=== PATIENT | female | born 1965 | race Caucasian/White ===

== ENCOUNTER 2021-01-21 14:21 | Emergency (ER) | payer OTHER ==
[2021-01-21] MEDS ORDERED: Piperacillin/Tazobactam 4.5 GM in Sodium Chloride 0.9% 100 ML IV SCH (16:15)
[2021-01-21] MEDS ORDERED: Lactated Ringers 1,000 ML IV SCH (16:15)
[2021-01-21] MEDS ORDERED: Albuterol/Ipratropium 4 GM Inhalation Spray INH STA (16:16)
[2021-01-21] MEDS ORDERED: Ondansetron 4 MG/2 ML SDV IVPUSH ONE (16:19)
[2021-01-21] MEDS ORDERED: fentaNYL 100 MCG/2 ML SDV IVPUSH ONE (16:19)
--- NOTE | 2021-01-21 16:19 | EDM.PDOC ---
ED HPI GENERAL MEDICAL PROBLEM - General Chief Complaint: Respiratory Problem Stated Complaint: NAUSEA, SOB, ABDOMINAL PAIN Time Seen by Provider: 01/21/21 16:08 Source of Information: Reports: Patient, RN Notes Reviewed History Limitations: Reports: No Limitations - History of Present Illness INITIAL COMMENTS - FREE TEXT/NARRATIVE: 55-year-old female presents emergency department day complaint of abdominal pain, she states she has been feeling worse and more short of breath has progressed over the last 5 days. Now she is having extreme difficulty breathing with intense abdominal pain has nausea vomiting no diarrhea Social & Family History - Tobacco Use Tobacco Use Status *Q: Never Tobacco User ED ROS GENERAL - Review of Systems Review Of Systems: See Below Constitutional: Reports: Fever, Chills, Weakness, Fatigue HEENT: Reports: No Symptoms Respiratory: Reports: Shortness of Breath Cardiovascular: Reports: Dyspnea on Exertion GI/Abdominal: Reports: Abdominal Pain, Flatus, Nausea, Vomiting : Reports: No Symptoms ED EXAM, GENERAL - Physical Exam Exam: See Below Exam Limited By: No Limitations General Appearance: Alert, Mild Distress Respiratory/Chest: No Respiratory Distress, Lungs Clear, Normal Breath Sounds, No Accessory Muscle Use, Chest Non-Tender Cardiovascular: Regular Rate, Rhythm, No Murmur GI/Abdominal: Soft, Tender (Tenderness to palpation) ED RESPIRATORY PROCEDURES - Endotracheal Intubation Time of Intubation: 17:21 ET Intubation Indication: Respiratory Failure Preparation: Suction, Balloon Tested, BVM Set Up, Difficult Airway Equip Airway Assessment: Obese Pre-Oxygenation: Assisted with BVM, 100% FiO2 Placement: Orotracheal, Cuffed Cords Visualized: Yes, Grade 3 ETT Size In mm: 7.5 Number of Attempts: 2 Confirmed By: CO2 Indicator, Bilateral Breath Sounds Tube Secured By: By RN Endotracheal Intubation Comment: Data Entry Technician(s):Samuel Officer Indication: Respiratory failure Consent: None Pre-airway Assessment: History: Presented to the emergency department concern for sepsis developed a rapid deterioration while in the ED Oral Aperture: 2 fingers Thyromental Distance (sniffing position): 2 fingers Hyroid the thyroid distance: 2 fingers Mallampati Airway Class: Class III Other factors pertinent to difficult airway: Obese with short neck Pre-oxygenation: This was a code situation no preoxygenation immediately started chest compressions oral airway was placed with bag valve mask ventilation Sellick's maneuver was not performed. Bag-mask ventilation was moderate. Placement and Proof: Indirect laryngoscopy was performed with a glide scope GVL 4. During code process Eder was in place IVs in place elected to proceed to the advanced airway initial attempt with the glide scope number four 7.5 ET tube and the glide scope stylette could not turn the corner to place the ET tube between the vocal cords. Scope was then withdrawn code continue. On the next attempt bougie was passed down again unsuccessful to turn the corner to pass through the vocal cords ET tube with the glide scope stylette was tried again but this time just outside the vocal cords or superior to the vocal cords the stylette was the n slowly withdrawn and this allowed good position of the ET tube passed through the vocal cords the tube was passed to about 23 cm balloon inflated held in place by hand the end-tidal capnography was placed on the end of the ET tube revealing yellow color good breath sounds bilaterally with moisture in the tube. The tube was then secured by nursing staff. The code continued Tracheal placement of the tube was confirmed by auscultation and colorimetric change. The total number of attempts at laryngoscopy (direct and indirect) was 2. The tube was secured at 23 cm at the teeth/gums. . Complications: None apparent #1 Interpretation EKG Date: 01/21/21 Time: 16:20 Rhythm: NSR [place]: Normal P-Wave: Present QRS: Normal ST-T: Normal QT: Normal Comparison: NA - No Prior EKG Course - Vital Signs Last Recorded V/S: Last Vital Signs Temp 97.8 F 01/21/21 15:46 Pulse 95 01/21/21 15:46 Resp 18 01/21/21 15:46 BP 106/72 01/21/21 15:46 Pulse Ox 86 L 01/21/21 15:46 - Orders/Labs/Meds Orders: Active Orders 24 hr Category Date Time Status Blood Pressure Mgt: Sepsis [RC] Q15MX2 Care 01/21/21 16:15 Active EKG Documentation Completion [RC] ASDIRECTED Care 01/21/21 16:14 Active RT Post Treatment Assessment [RC] Click to Edit Care 01/21/21 16:17 Active COVID-19/FLU A+B/RSV [MOLEC] Urgent Lab 01/21/21 16:17 Ordered CULTURE BLOOD [BC] Urgent Lab 01/21/21 16:30 Received CULTURE BLOOD [BC] Urgent Lab 01/21/21 16:50 Received D-DIMER QUANTITATIVE [COAG] Urgent Lab 01/21/21 16:28 Ordered LACTATE SEPSIS W/ REFLEX [CHEM] Stat Lab 01/21/21 16:13 Ordered PROCALCITONIN [CHEM] Stat Lab 01/21/21 16:13 Ordered UA W/MICROSCOPIC [URIN] Stat Lab 01/21/21 16:13 Ordered Lactated Ringers [Ringers, Lactated] 1,000 ml Med 01/21/21 16:15 Active IV ASDIRECTED Piperacillin/Tazobactam [Zosyn] 4.5 gm Med 01/21/21 16:15 Active Sodium Chloride 0.9% [Normal Saline] 100 ml IV Q6H Blood Culture x2 Reflex Set [OM.PC] Urgent Oth 01/21/21 16:13 Ordered Severe Sepsis Onset Time [OM.PC] Stat Oth 01/21/21 16:13 Ordered EKG 12 Lead [EK] Stat Ther 01/21/21 16:13 Ordered Medication Orders Lactated Ringer's (Ringers, Lactated) 1,000 mls @ 999 mls/hr IV ASDIRECTED EFREN Piperacillin Sod/Tazobactam (Sod 4.5 gm/ Sodium Chloride) 100 mls @ 100 mls/hr IV Q6H [facility] Labs: Laboratory Tests 01/21/21 01/21/21 01/21/21 Range/Units 16:13 16:13 16:13 WBC 17.2 H (4.5-11.0) K/uL RBC 5.92 H (3.30-5.50) M/uL Hgb 14.8 (12.0-15.0) g/dL Hct 47.3 (36.0-48.0) % MCV 80 (80-98) fL MCH 25 L (27-31) pg MCHC 31 L (32-36) % Plt Count 656 H (150-400) K/uL Neut % (Auto) 72 H (36-66) % Lymph % (Auto) 21 L (24-44) % Leon % (Auto) 6 (2-6) % Eos % (Auto) 0 L (2-4) % Baso % (Auto) 0 (0-1) % Puncture Site Femoral ABG pH 7.108 L* (7.350-7.450) ABG pCO2 46.6 H (35.0-42.0) mmHg ABG pO2 34.1 L* (75.0-100.0) mmHg ABG HCO3 14.1 L (22.0-26.0) mmol/L ABG Total CO2 13.8 L (21.0-25.0) mmol/L ABG O2 Saturation 33.6 L (95.0-98.0) % ABG O2 Content 6.3 L (15.0-23.0) %vol ABG Base Excess -15.2 mm/L ABG Hemoglobin 13.4 (12.0-16.0) g/dL ABG Oxyhemoglobin 33.3 % ABG Carboxyhemoglobin < 0.5 (0.0-1.6) % ABG Methemoglobin 0.7 % Jaime Test TNP O2 Delivery Device Nasal cannula Sodium 136 L (140-148) mmol/L Potassium 6.1 H* (3.6-5.2) mmol/L Chloride 101 (100-108) mmol/L Carbon Dioxide 14 L (21-32) mmol/L Anion Gap 27.1 H (5.0-14.0) mmol/L BUN 16 (7-18) mg/dL Creatinine 0.8 (0.6-1.0) mg/dL Est Cr Clr Drug Dosing 70.66 mL/min Estimated GFR (MDRD) > 60 (>60) Glucose 191 H (74-106) mg/dL Calcium 9.4 (8.5-10.1) mg/dL Total Bilirubin 1.3 H (0.2-1.0) mg/dL AST 40 H (15-37) U/L ALT 24 (12-78) U/L Alkaline Phosphatase 111 (46-116) U/L Troponin I < 0.017 (0.000-0.056) ng/mL Total Protein 8.0 (6.4-8.2) g/dL Albumin 2.8 L (3.4-5.0) g/dL Globulin 5.2 H (2.3-3.5) g/dL Albumin/Globulin Ratio 0.5 L (1.2-2.2) Lipase 67 L (73-393) U/L Meds: Medications Generic Name Dose Route Start Last Admin Trade Name Freq PRN Reason Stop Dose Admin Lactated Ringer's 1,000 mls @ 999 mls/hr 01/21/21 16:15 Ringers, Lactated IV ASDIRECTED EFREN Piperacillin Sod/Tazobactam 100 mls @ 100 mls/hr 01/21/21 16:15 Sod 4.5 gm/ Sodium Chloride IV Q6H EFREN Discontinued Medications Generic Name Dose Route Start Last Admin Trade Name Freq PRN Reason Stop Dose Admin Albuterol/Ipratropium 1 gm 01/21/21 16:16 Albuterol/Ipratropium 4 Gm Inhalation [place] [facility] 01/21/21 16:17 NOW STA Fentanyl 50 mcg 01/21/21 16:19 Fentanyl 100 Mcg/2 Ml Sdv IVPUSH 01/21/21 16:20 ONETIME ONE Ondansetron HCl 4 mg 01/21/21 16:19 Ondansetron 4 Mg/2 Ml Sdv IVPUSH 01/21/21 16:20 ONETIME ONE Departure - Departure Time of Disposition: 17:30 Disposition: 20 Clinical Impression: due to respiratory arrest - Discharge Information Referrals: Parminder Torres MD [Primary Care Provider] - Forms: ED Department Discharge Critical Care Note - Critical Care Note Total Time (mins): 45 Sepsis Event Note (ED) - Focused Exam Vital Signs: Vital Signs Temp Pulse Resp BP Pulse Ox 01/21/21 15:46 97.8 F 95 18 106/72 86 L - My Orders Last 24 Hours: My Active Orders 01/21/21 16:13 LACTATE SEPSIS W/ REFLEX [CHEM] Stat PROCALCITONIN [CHEM] Stat UA W/MICROSCOPIC [URIN] Stat Blood Culture x2 Reflex Set [OM.PC] Urgent Severe Sepsis Onset Time [OM.PC] Stat EKG 12 Lead [EK] Stat 01/21/21 16:14 EKG Documentation Completion [RC] ASDIRECTED 01/21/21 16:15 Blood Pressure Mgt: Sepsis [RC] Q15MX2 Lactated Ringers [Ringers, Lactated] 1,000 ml IV ASDIRECTED Piperacillin/Tazobactam [Zosyn] 4.5 gm Sodium Chloride 0.9% [Normal Saline] 100 ml IV Q6H 01/21/21 16:17 RT Post Treatment Assessment [RC] Click to Edit COVID-19/FLU A+B/RSV [MOLEC] Urgent 01/21/21 16:28 D-DIMER QUANTITATIVE [COAG] Urgent 01/21/21 16:30 CULTURE BLOOD [BC] Urgent 01/21/21 16:50 CULTURE BLOOD [BC] Urgent - Assessment/Plan Last 24 Hours: My Active Orders 01/21/21 16:13 LACTATE SEPSIS W/ REFLEX [CHEM] Stat PROCALCITONIN [CHEM] Stat UA W/MICROSCOPIC [URIN] Stat Blood Culture x2 Reflex Set [OM.PC] Urgent Severe Sepsis Onset Time [OM.PC] Stat EKG 12 Lead [EK] Stat 01/21/21 16:14 EKG Documentation Completion [RC] ASDIRECTED 01/21/21 16:15 Blood Pressure Mgt: Sepsis [RC] Q15MX2 Lactated Ringers [Ringers, Lactated] 1,000 ml IV ASDIRECTED Piperacillin/Tazobactam [Zosyn] 4.5 gm Sodium Chloride 0.9% [Normal Saline] 100 ml IV Q6H 01/21/21 16:17 RT Post Treatment Assessment [RC] Click to Edit COVID-19/FLU A+B/RSV [MOLEC] Urgent 01/21/21 16:28 D-DIMER QUANTITATIVE [COAG] Urgent 01/21/21 16:30 CULTURE BLOOD [BC] Urgent 01/21/21 16:50 CULTURE BLOOD [BC] Urgent Plan: Assessment Acuity = acute Site and laterality = respiratory arrest leading to CODE BLUE with cardiac Etiology = unknown suspicious for pulmonary embolism Manifestations = none Location of injury = Home Lab values = WBC elevated 17.2 consistent leukocytosis venous pH 7.1 consistent with acidosis potassium elevated 6.1 consistent with hyperkalemia however this sample was hemolyzed total bilirubin elevated 1.3 consistent hyperbilirubinemia AST at 40 consistent with elevated liver enzymes troponin was negative EKG demonstrated a sinus rhythm there is no ST elevations or depressions Plan Please see CODE BLUE sheet and documentation for details This note was dictated using [employer] voice recognition software please call with any questions on syntax or grammar.
[2021-01-21] MEDS ORDERED: EPINEPHrine 1:10,000 1 MG/10 ML Syringe IV ONE ×5 (16:35→16:56)
[2021-01-21] MEDS ORDERED: Sodium Bicarbonate 8.4% 50 MEQ/50 ML Syringe IV ONE (16:54)
--- NOTE | 2021-01-21 17:41 | PCM.SN.2 ---
- Free Text/Narrative Note: CODE BLUE note please see CODE BLUE sheet for documentation brief history this was a 55-year-old female who presented to the emergency department with Shortness of breath during exertion she recently had a preoperative physical and was scheduled for a hysterectomy later on in the month. She stated over the last 4 days she has been increasingly more short of breath also complained of ongoing abdominal pain had not had any fevers or chills at home no cough the shortness of breath was predominantly during exertion. I initially had the opportunity to interview her was concerned about septic risk as she did become hypoxic while in the emergency department and feverish therefore lab work image studies were ordered. Before that information was available she deteriorated was moved from initial exam room 6 to trauma bay 10 at which time she continued to decompensate. Code was called at 1631 chest compressions were started immediately oral airway was in place with bag valve mask ventilation. At the time [address] as code team assembled continued with chest compressions and bag ventilation the initial rhythm check revealed a electrical activity however no pulse was appreciated at 2 checkpoints therefore concern for PEA patches were applied analyzed rhythm stated no shock advised. Compressions continued during the course of the code a total of 5 mg epinephrine provided, 1 amp of bicarb provided chest compressions were taken over by the Eder at 1638 advanced airway was placed at 1650 this was a second attempt the first attempt was unsuccessful please see note for details. Ultrasound was also done at bedside which just revealed minimal cardiac activity the ventricles were full however no organized rhythm was appreciated. Time of was 1659
[2021-01-21 17:54] LABS: CORONAVIRUS COVID-19 NAA NEGATIVE (NEGATIVE)
== END 2021-01-21 16:59 | disposition expired ==
LOC: JP.ED 14:21
DX: R09.2 Respiratory arrest (principal); Z20.822 Contact with and (suspected) exposure to COVID-19
CPT/HCPCS: 0241U; 31500; 36415; 36680; 80053; 82803; 83605; 83690; 84145; 84484; 85025; 85379; 87040; 92950; 93005; 99285; J0171; 99291; A9270-GY